=== PATIENT | female | born 1950 | race Caucasian/White ===

== ENCOUNTER 2017-04-29 10:42 | Day surgery (SDC) | payer MEDICARE, OTHER ==
[2017-04-29] VITALS (9 sets, daily range): BP systolic 155–164; BP diastolic 52–86
[~2017-04-29] VITALS: Ht 162.6 cm; Wt 110.3 kg
[2017-04-29] MEDS ORDERED: ASPI81TA52 PO (11:31)
[2017-04-29] MEDS ORDERED: CHOL10002 PO (11:31)
[2017-04-29] MEDS ORDERED: MULT-38 PO (11:31)
[2017-04-29] MEDS ORDERED: EZET10TA14 PO (11:31)
[2017-04-29] MEDS ORDERED: DICL50TA8 PO (11:31)
[2017-04-29] MEDS ORDERED: FURO-150 PO (11:31)
[2017-04-29] MEDS ORDERED: DULO-31 PO (11:31)
[2017-04-29] MEDS ORDERED: ATOR80TA PO (11:31)
[2017-04-29] MEDS ORDERED: LISI40TA4 PO (11:31)
[2017-04-29] MEDS ORDERED: trajenta PO (11:31)
[2017-04-29] MEDS ORDERED: METF500T PO (11:31)
[2017-04-29] MEDS ORDERED: CARV-50 PO (11:31)
[2017-04-29] MEDS ORDERED: ALBU6.7H INH (11:31)
[2017-04-29] MEDS ORDERED: INSU300I SQ (11:31)
[2017-04-29] MEDS ORDERED: SPIR25TA3 PO (11:31)
[2017-04-29] MEDS ORDERED: diphenhydrAMINE 25mg capsule PO PRN (11:35)
[2017-04-29 11:38] LABS: BASOPHILS % (AUTO) 0.4 % (0-1); EOSINOPHILS # (AUTO) 0.5 X10'3 (0-0.9); HEMATOCRIT 36.6 % (35.0-45.0); HEMOGLOBIN 12.3 g/dl (12.0-16.0); LYMPHOCYTES # (AUTO) 2.8 X10'3 (1.1-4.8); LYMPHOCYTES % (AUTO) 26.7 % (21-51); MEAN CORPUSCULAR HEMOGLOBIN 30.5 PG (27.0-31.0); MEAN CORPUSCULAR HGB CONC 33.5 % (33.0-36.5); MEAN CORPUSCULAR VOLUME 91.3 FL (78-98); MEAN PLATELET VOLUME 7.9 FL (7.4-10.4); MONOCYTES # (AUTO) 0.7 X10'3 (0-0.9); MONOCYTES % (AUTO) 6.8 % (2-12); NEUTROPHILS # (AUTO) 6.5 X10'3 (1.8-7.7); NEUTROPHILS % (AUTO) 61.1 % (42-75); PLATELET COUNT 258 X10'3 (140-440); RED BLOOD COUNT 4.01 X10'6 (4.20-5.60); RED CELL DISTRIBUTION WIDTH 13.9 % (11.5-14.5); WHITE BLOOD COUNT 10.6 X10'3 (4.5-11.0)
[2017-04-29] MEDS ORDERED: sodium bicarbonate (8.4%) inj. 150 MEQ in dextrose 5%-water 1,000 ML IV ONE ×2 (11:40→11:45)
[2017-04-29] MEDS ORDERED: LIDOcaine 1%/PF (10mg/ml) 5ml vial ONE (11:41)
[2017-04-29] MEDS ORDERED: iohexol 350 MG/ML 50ML vial IV ONE (11:41)
[2017-04-29] MEDS ORDERED: iohexol 350MG/ML 100ml bottle IV ONE (11:41)
[2017-04-29 11:46] LABS: ALBUMIN 3.3 G/DL (3.4-5.0); ANION GAP 7 (8-16); BLOOD UREA NITROGEN 30 MG/DL (7-18); BUN/CREATININE RATIO 23.1 (6.6-38.0); CALCIUM 9.1 MG/DL (8.5-10.1); CHLORIDE 109 MMOL/L (99-107); GLUCOSE 151 MG/DL (70-104); MAGNESIUM 2.2 MG/DL (1.5-2.4); POTASSIUM 4.5 MMOL/L (3.5-5.1); SODIUM 145 MMOL/L (135-145); TOTAL CARBON DIOXIDE 29.4 MMOL/L (24-32); eGFR 41 ML/MIN
[2017-04-29 11:47] LABS: PROTHROMBIN TIME 10.2 SECONDS (9.0-12.0)
[2017-04-29] MEDS ORDERED: diphenhydrAMINE 50 mg/ml inj ONE (12:03)
[2017-04-29] MEDS ORDERED: fentaNYL/PF 50MCG/1 ML 2ML syringe ONE (12:04)
[2017-04-29] MEDS ORDERED: midazolam 2 mg/2 ml injection ONE (12:04)
[2017-04-29] MEDS ORDERED: hydrALAZINE 20mg/ml inj. IV ONE (12:22)
== END 2017-04-29 16:35 | disposition home or self-care (01) ==
LOC: SSTAY O 10:42
PROVIDERS: ATTEND Internal Medicine Cardiovascular Disease
DX: I25.10 Atherosclerotic heart disease of native coronary artery without angina pectoris (principal); I44.7 Left bundle-branch block, unspecified; E11.9 Type 2 diabetes mellitus without complications; I10 Essential (primary) hypertension; E78.5 Hyperlipidemia, unspecified; E66.9 Obesity, unspecified; M19.90 Unspecified osteoarthritis, unspecified site; F17.210 Nicotine dependence, cigarettes, uncomplicated; Z98.890 Other specified postprocedural states; Z79.82 Long term (current) use of aspirin; Z79.1 Long term (current) use of non-steroidal anti-inflammatories (NSAID); Z79.4 Long term (current) use of insulin; Z79.84 Long term (current) use of oral hypoglycemic drugs; Z90.710 Acquired absence of both cervix and uterus; Z90.722 Acquired absence of ovaries, bilateral; Z85.828 Personal history of other malignant neoplasm of skin; Z68.41 Body mass index [BMI] 40.0-44.9, adult
CPT/HCPCS: 36415; 80048; 82948; 83735; 85025; 85610; 93005; 93458; 99152; 99153; A6257; C1760; C1769; C1894; J0360; J1200; J1644; J2001; J2250; J3010; J7030; Q9967; A4620; J7070

== ENCOUNTER 2021-06-05 14:34 | Inpatient (IN) | payer MEDICARE ==
[~2021-06-05] VITALS: Ht 162.6 cm; Wt 111.8 kg
[~2021-06-05 14:34] MED LIST: ALBU6.7H9 INH; AMA1T PO; ASPI81TA52 PO; ATOR80TA PO; CARV-50 PO; CHOL10002 PO; DAPA10TA PO; DICL50TA8 PO; DULO-31 PO; EZET10TA6 PO; FLUT1BLS4 INH; FURO-150 PO; FURO40TA4 PO; INSU200I4 SQ; INSU300I SQ; LISI40TA13 PO; METF500T PO; METO-411 PO; MULT-38 PO; ROSU40TA22 PO; SPIR25TA5 PO; VARE1TAB24 PO; trajenta PO
[2021-06-05 15:02] LABS: BASOPHILS # (AUTO) 0.1 X10'3 (0-0.2); BASOPHILS % (AUTO) 0.7 % (0-1); EOSINOPHILS # (AUTO) 0.6 X10'3 (0-0.9); EOSINOPHILS % (AUTO) 4.4 % (0-6); HEMATOCRIT 34.4 % (35.0-45.0); HEMOGLOBIN 11.1 g/dl (12.0-16.0); LYMPHOCYTES % (AUTO) 23.6 % (21-51); MEAN CORPUSCULAR HEMOGLOBIN 28.4 PG (27.0-31.0); MEAN CORPUSCULAR HGB CONC 32.2 g/dL (33.0-36.5); MEAN CORPUSCULAR VOLUME 88.1 FL (78-98); MEAN PLATELET VOLUME 8.3 FL (7.4-10.4); MONOCYTES # (AUTO) 0.8 X10'3 (0-0.9); MONOCYTES % (AUTO) 6.3 % (2-12); NEUTROPHILS # (AUTO) 8.3 X10'3 (1.8-7.7); PLATELET COUNT 322 X10'3 (140-440); RED BLOOD COUNT 3.91 X10'6 (4.20-5.60); RED CELL DISTRIBUTION WIDTH 14.8 % (11.5-14.5); WHITE BLOOD COUNT 12.8 X10'3 (4.5-11.0)
[2021-06-05 15:06] LABS: APTT 25 SECONDS (22-32)
[2021-06-05 15:10] LABS: ALANINE AMINOTRANSFERASE 21 U/L (12-78); ALBUMIN 3.2 G/DL (3.4-5.0); ALBUMIN/GLOBULIN RATIO 0.9 (1.1-1.5); ALKALINE PHOSPHATASE 171 IU/L (46-116); ANION GAP 11 (8-16); ASPARTATE AMINO TRANSFERASE 11 U/L (10-37); BILIRUBIN,TOTAL 0.2 MG/DL (0.1-1.0); BLOOD UREA NITROGEN 43 MG/DL (7-18); BUN/CREATININE RATIO 23.5 (6.6-38.0); CALCIUM 8.8 MG/DL (8.5-10.1); CHLORIDE 107 MMOL/L (99-107); CREATININE 1.83 MG/DL (0.40-0.90); GLUCOSE 356 MG/DL (70-104); POTASSIUM 4.7 MMOL/L (3.5-5.1); SODIUM 143 MMOL/L (135-145); TOTAL CARBON DIOXIDE 24.8 MMOL/L (24-32); TOTAL PROTEIN 6.8 G/DL (6.4-8.2); eGFR 27 ML/MIN
[2021-06-05] MEDS ORDERED: DULO30CA52 PO (16:23)
[2021-06-05] MEDS ORDERED: VARE1TAB24 PO (16:23)
[2021-06-05] MEDS ORDERED: DULO60CA65 PO (16:25)
--- NOTE | 2021-06-05 16:30 | NUR ---
Pt had rhythm change. EKG obtained.
[2021-06-05] MEDS ORDERED: heparin 25,000 UNIT/250ml bag 250 ML IV SCH (16:40)
[2021-06-05] MEDS ORDERED: heparin 10,000 units/1 ML INJ IV ONE ×2 (16:40→16:55)
[2021-06-05 18:13] LABS: HEMOGLOBIN A1C 9.1 % (4.5-6.2)
[2021-06-05] MEDS ORDERED: morphine 2 MG/ML inj. syringe IV PRN ×2 (19:20)
[2021-06-05] MEDS ORDERED: MESSAGE TO PHARMACY PO ONE (19:20)
[2021-06-05] MEDS ORDERED: potassium CL 10mEq/100ml bag 100 ML IV PRN (19:20)
[2021-06-05] MEDS ORDERED: DEXTROSE 15 GM of carb/4 tabs (each vial/BOTTLE has 4 tablets) PO PRN ×2 (19:20)
[2021-06-05] MEDS ORDERED: mag hydrox/Alum hydrox/simeth 30ml oral suspension PO PRN (19:20)
[2021-06-05] MEDS ORDERED: acetaminophen 325mg tablet PO PRN ×2 (19:20)
[2021-06-05] MEDS ORDERED: potassium Cl 20 mEq SR tablet PO PRN ×2 (19:20)
[2021-06-05] MEDS ORDERED: magnesium Cl slow-release 64mg tablet PO PRN (19:20)
[2021-06-05] MEDS ORDERED: acetaminophen 650mg rectal suppository RC PRN (19:20)
[2021-06-05] MEDS ORDERED: magnesium hydroxide 30ml (MOM) UD suspension PO PRN (19:20)
[2021-06-05] MEDS ORDERED: normal saline 1000ml 1,000 ML IV SCH (19:20)
[2021-06-05] MEDS ORDERED: magnesium 4gm in 100ml NS 100 ML IV PRN (19:20)
[2021-06-05] MEDS ORDERED: dextrose 50%-water 50ml dispensing syringe IV PRN ×2 (19:20)
[2021-06-05] MEDS ORDERED: bisacodyl 10mg suppository rectal RC PRN (19:20)
[2021-06-05] MEDS ORDERED: glucagon, human recombinant 1mg kit SUBCUT PRN (19:20)
[2021-06-05] MEDS ORDERED: HYDROcodone/acetaminophen 5mg/325mg tablet PO PRN (19:20)
[2021-06-05] MEDS ORDERED: diphenhydrAMINE 25mg capsule PO PRN (19:20)
[2021-06-05] MEDS ORDERED: HYDROcodone/acetaminophen 10/325mg tab PO PRN (19:20)
[2021-06-05] MEDS ORDERED: magnesium 2GM in 50ml NS 50 ML IV PRN (19:20)
[2021-06-05] MEDS ORDERED: ondansetron/PF 4mg/2ml inj IV PRN (19:20)
[2021-06-05] MEDS: K and/or MAG REPLACEMENT MC SCH (20:00)
[2021-06-05] MEDS: docusate sod 100mg capsule PO SCH (20:00)
[2021-06-05] MEDS ORDERED: varenicline tartrate 1mg tablet PO SCH ×2 (20:00→21:07)
[2021-06-05] MEDS ORDERED: budesonide 0.5mg/2ml UD nebule IH SCH (20:00)
[2021-06-05] MEDS: ipratropium/albuterol 3ml nebule IH SCH (20:35)
[2021-06-05] MEDS ORDERED: metoprolol tartrate 1mg/ml inj IV ONE (20:35)
[2021-06-05] MEDS ORDERED: metoprolol tartrate 50mg tablet PO ONE (20:35)
[2021-06-05] MEDS: budesonide 0.5mg/2ml UD nebule IH SCH (20:36)
[2021-06-05] MEDS ORDERED: insulin glargine (Lantus) pen - multi-dose SQ SCH (21:00)
[2021-06-05 22:00] VITALS: BP 150/64
[2021-06-06 02:00] VITALS: BP 172/61
[2021-06-06] MEDS: ipratropium/albuterol 3ml nebule IH SCH ×2 (02:27→09:09)
[2021-06-06] MEDS: heparin 10,000 units/1 ML INJ IV PRN ×2 (02:28→10:39)
[2021-06-06 06:00] VITALS: BP 134/64
[2021-06-06 07:14] LABS: BASOPHILS # (AUTO) 0.1 X10'3 (0-0.2); BASOPHILS % (AUTO) 0.7 % (0-1); EOSINOPHILS # (AUTO) 0.5 X10'3 (0-0.9); EOSINOPHILS % (AUTO) 4.5 % (0-6); HEMATOCRIT 30.5 % (35.0-45.0); LYMPHOCYTES # (AUTO) 3.2 X10'3 (1.1-4.8); LYMPHOCYTES % (AUTO) 30.2 % (21-51); MEAN CORPUSCULAR HGB CONC 32.7 g/dL (33.0-36.5); MEAN CORPUSCULAR VOLUME 88.7 FL (78-98); MEAN PLATELET VOLUME 8.5 FL (7.4-10.4); MONOCYTES # (AUTO) 0.6 X10'3 (0-0.9); MONOCYTES % (AUTO) 6.1 % (2-12); NEUTROPHILS # (AUTO) 6.1 X10'3 (1.8-7.7); NEUTROPHILS % (AUTO) 58.5 % (42-75); PLATELET COUNT 275 X10'3 (140-440); RED BLOOD COUNT 3.44 X10'6 (4.20-5.60); RED CELL DISTRIBUTION WIDTH 14.5 % (11.5-14.5); WHITE BLOOD COUNT 10.5 X10'3 (4.5-11.0)
[2021-06-06 07:21] LABS: ALANINE AMINOTRANSFERASE 16 U/L (12-78); ALBUMIN 2.8 G/DL (3.4-5.0); ALBUMIN/GLOBULIN RATIO 0.9 (1.1-1.5); ALKALINE PHOSPHATASE 102 IU/L (46-116); ANION GAP 7 (8-16); ASPARTATE AMINO TRANSFERASE 13 U/L (10-37); BILIRUBIN,TOTAL 0.3 MG/DL (0.1-1.0); BLOOD UREA NITROGEN 40 MG/DL (7-18); BUN/CREATININE RATIO 26.8 (6.6-38.0); CALCIUM 8.7 MG/DL (8.5-10.1); CHLORIDE 112 MMOL/L (99-107); CREATININE 1.49 MG/DL (0.40-0.90); GLUCOSE 165 MG/DL (70-104); POTASSIUM 4.7 MMOL/L (3.5-5.1); SODIUM 144 MMOL/L (135-145); TOTAL CARBON DIOXIDE 25.4 MMOL/L (24-32); eGFR 35 ML/MIN
[2021-06-06 07:26] LABS: CHOL/HDL RATIO 4.1 (0.00-4.99); CHOLESTEROL 115 MG/DL (0-200); HDL CHOLESTEROL 28 MG/DL (35-60); LDL CHOLESTEROL 64 MG/DL (50-100); MAGNESIUM 2.5 MG/DL (1.5-2.4); TRIGLYCERIDES 121 MG/DL (20-135)
[2021-06-06] MEDS ORDERED: ezetimibe 10mg tablet PO SCH (08:00)
[2021-06-06] MEDS: K and/or MAG REPLACEMENT MC SCH (08:00)
[2021-06-06] MEDS ORDERED: cholecalciferol (vitamin D3) 1,000 unit (25mcg) tablet PO SCH (08:00)
[2021-06-06] MEDS ORDERED: atorvastatin 20mg tablet PO SCH (08:00)
[2021-06-06] MEDS ORDERED: metoprolol succinate 25mg (24-HOUR) SR. Tablet PO SCH (08:00)
[2021-06-06] MEDS ORDERED: furosemide 40mg tablet PO SCH (08:00)
[2021-06-06] MEDS ORDERED: aspirin 81mg, enteric-coated 1 TAB TABLET.DR PO SCH (08:00)
[2021-06-06] MEDS ORDERED: lisinopril 20mg tablet PO SCH (08:00)
[2021-06-06] MEDS ORDERED: spironolactone 25 MG tablet PO SCH (08:00)
[2021-06-06] MEDS ORDERED: duloxetine 30mg CAPSULE.DR PO SCH ×2 (08:00)
[2021-06-06] MEDS ORDERED: multivitamins, therapeutics tablet PO SCH (08:00)
[2021-06-06] MEDS: budesonide 0.5mg/2ml UD nebule IH SCH (09:09)
[2021-06-06] MEDS: docusate sod 100mg capsule PO SCH (10:27)
[2021-06-06 10:34] VITALS: BP_SYST 137
[2021-06-06] MEDS: insulin Lispro (HumaLOG) vial - multi-dose SQ SCH ×2 (10:42→13:27)
[2021-06-06] MEDS ORDERED: CLOP75TA15 PO (11:11)
[2021-06-06] MEDS ORDERED: clopidogrel 75mg tablet PO SCH (11:40)
--- NOTE | 2021-06-06 13:36 | NUR ---
DM consult: Pt with T2DM with A1c 9.1%. Pt discharged prior to RD being available for bedside visit. Written DM education with RD contact information mailed to patient's address found in EMR. Will remain available. Addendum: 06/06/21 at [address] Amended: Links added.
--- NOTE | 2021-06-06 13:53 | NUR ---
Patient is being discharged. Gave her all discharge instructions and answered all her questions. Both IVs were removed and intact. No redness or irritation noted. Telemetry removed. Patient has all her belongings. Patient drove herself. Wheeled her down to her car via wheelchair and helped her into her car.
== END 2021-06-06 13:33 | disposition home or self-care (01) | DRG 309 ==
LOC: ER 14:35 → ED HOLD 19:24 → PCU 3S 21:50
PROVIDERS: ADMIT Family Medicine; ATTEND Family Medicine
DX: I48.91 Unspecified atrial fibrillation (principal); I13.0 Hypertensive heart and chronic kidney disease with heart failure and stage 1 through stage 4 chronic kidney disease, or unspecified chronic kidney disease; I65.22 Occlusion and stenosis of left carotid artery; I42.9 Cardiomyopathy, unspecified; Z20.822 Contact with and (suspected) exposure to COVID-19; D72.829 Elevated white blood cell count, unspecified; E11.22 Type 2 diabetes mellitus with diabetic chronic kidney disease; E66.01 Morbid (severe) obesity due to excess calories; E78.5 Hyperlipidemia, unspecified; F32.A Depression, unspecified; F41.9 Anxiety disorder, unspecified; J44.9 Chronic obstructive pulmonary disease, unspecified; I25.10 Atherosclerotic heart disease of native coronary artery without angina pectoris; I50.9 Heart failure, unspecified; N18.9 Chronic kidney disease, unspecified; Z79.02 Long term (current) use of antithrombotics/antiplatelets; Z79.82 Long term (current) use of aspirin; I25.2 Old myocardial infarction; Z85.820 Personal history of malignant melanoma of skin; Z87.891 Personal history of nicotine dependence; Z90.710 Acquired absence of both cervix and uterus; Z95.5 Presence of coronary angioplasty implant and graft; Z68.24 Body mass index [BMI] 24.0-24.9, adult; J45.909 Unspecified asthma, uncomplicated
CPT/HCPCS: 36415; 70498; 71045; 80053; 80061; 82948; 83036; 83735; 84484; 85025; 85610; 85730; 87081; 87635; 93005; 94640; 94760; 96365; 96375; 99285; C9803; G0378; J1644; J1815; J3490; J7030; J7070

== ENCOUNTER 2021-06-22 09:01 | Inpatient (IN) | payer MEDICARE ==
[2021-06-18 14:01] LABS: BASOPHILS # (AUTO) 0.1 X10'3 (0-0.2); BASOPHILS % (AUTO) 0.5 % (0-1); EOSINOPHILS # (AUTO) 0.6 X10'3 (0-0.9); EOSINOPHILS % (AUTO) 4.6 % (0-6); LYMPHOCYTES # (AUTO) 2.5 X10'3 (1.1-4.8); LYMPHOCYTES % (AUTO) 20.2 % (21-51); MEAN CORPUSCULAR HEMOGLOBIN 28.6 PG (27.0-31.0); MEAN CORPUSCULAR HGB CONC 32.5 g/dL (33.0-36.5); MEAN CORPUSCULAR VOLUME 87.9 FL (78-98); MEAN PLATELET VOLUME 8.3 FL (7.4-10.4); MONOCYTES # (AUTO) 0.8 X10'3 (0-0.9); MONOCYTES % (AUTO) 6.3 % (2-12); NEUTROPHILS # (AUTO) 8.5 X10'3 (1.8-7.7); NEUTROPHILS % (AUTO) 68.4 % (42-75); PRE OP HEMATOCRIT 36.8 % (35.0-45.0); PRE OP PLATELET COUNT 367 X10'3 (140-440); RED BLOOD COUNT 4.19 X10'6 (4.20-5.60); RED CELL DISTRIBUTION WIDTH 14.5 % (11.5-14.5)
[2021-06-18 14:13] LABS: HEMOGLOBIN A1C 8.8 % (4.5-6.2)
[2021-06-18 14:14] LABS: PRE OP PROTIME 10.3 SECONDS (9.0-12.0)
[2021-06-18 14:16] LABS: ALBUMIN 3.6 G/DL (3.4-5.0); ALBUMIN/GLOBULIN RATIO 0.9 (1.1-1.5); ALKALINE PHOSPHATASE 122 IU/L (46-116); BLOOD UREA NITROGEN 62 MG/DL (7-18); BUN/CREATININE RATIO 28.6 (6.6-38.0); CALCIUM 8.8 MG/DL (8.5-10.1); CHLORIDE 106 MMOL/L (99-107); CREATININE 2.17 MG/DL (0.40-0.90); PRE OP ALT 23 U/L (30-65); PRE OP ANION GAP 10 (8-16); PRE OP AST 21 U/L (10-37); PRE OP BILIRUB, TOTAL 0.3 MG/DL (0.0-1.0); PRE OP POTASSIUM 4.7 MMOL/L (3.4-5.1); PRE OP SODIUM 142 MMOL/L (135-145); TOTAL CARBON DIOXIDE 26.4 MMOL/L (24-32); TOTAL PROTEIN 7.5 G/DL (6.4-8.2); eGFR 22 ML/MIN
[2021-06-18 14:21] LABS: PRE OP GLUCOSE 60 MG/DL (70-104)
[2021-06-22] VITALS (22 sets, daily range): BP systolic 112–176; BP diastolic 49–83
[~2021-06-22] VITALS: Ht 160 cm; Wt 113.1 kg
[~2021-06-22 09:01] MED LIST changes: -ATOR80TA PO; -CARV-50 PO; +CLOP75TA15 PO; -DICL50TA8 PO; -DULO-31 PO; +DULO30CA52 PO; +DULO60CA65 PO; -FURO-150 PO; -INSU300I SQ; -METF500T PO; +cefazolin/dext.iso 2gm/50ml IV ONE; +famotidine 20mg tablet PO ONE; +mupirocin 2% nasal ointment 1gm UD NS ONE; +ringers solution, lacted 1,000 ML IV SCH; -trajenta PO
[2021-06-22] MEDS ORDERED: nitroPRUSSIDE sod inj. 50 MG in dextrose 5%-water 248 ML IV SCH ×2 (10:10→13:50)
[2021-06-22] MEDS ORDERED: phenylephrine 50 MG in NS 250ml IVPB IV SCH (10:10)
[2021-06-22] MEDS ORDERED: heparin 10,000 units/1 ML INJ ONE (10:22)
[2021-06-22] MEDS ORDERED: ceFAZolin 1000mg inj ONE (10:22)
[2021-06-22] MEDS: phenylephrine 50 MG in NS 250ml IVPB IV SCH (10:34)
[2021-06-22] MEDS ORDERED: rocuronium 10mg/ml inj IV ONE ×2 (12:59→13:24)
[2021-06-22] MEDS ORDERED: etomidate 2mg/ml inj. ONE ×2 (12:59→13:24)
[2021-06-22] MEDS ORDERED: ondansetron/PF 4mg/2ml inj ONE (13:26)
[2021-06-22] MEDS ORDERED: dexamethasone sod phosphate 4mg/ml inj. ONE (13:26)
[2021-06-22] MEDS ORDERED: FENTANYL CITRATE/PF 50 MCG/1 ML VIAL ONE (13:26)
[2021-06-22] MEDS ORDERED: glycopyrrolate 0.2mg/ml inj ONE (13:28)
[2021-06-22] MEDS ORDERED: sugammadex 200mg/2ml injection IV ONE (13:41)
[2021-06-22] MEDS ORDERED: ringers solution, lacted 1,000 ML IV SCH (13:50)
[2021-06-22] MEDS ORDERED: morphine 4 MG/ML inj SYRINge IV PRN (13:50)
[2021-06-22] MEDS ORDERED: fentaNYL/PF 50MCG/1 ML 2ML syringe IV PRN ×2 (13:50)
[2021-06-22] MEDS ORDERED: hydrALAZINE 20mg/ml inj. IV PRN (13:50)
[2021-06-22] MEDS ORDERED: enalaprilat dihydrate 2.5mg/2ml vial IV PRN (13:50)
[2021-06-22] MEDS ORDERED: ondansetron/PF 4mg/2ml inj IV PRN ×2 (13:50→14:45)
[2021-06-22] MEDS ORDERED: PHENYLephrine 10mg/ml inj. 100 MG in normal saline 250ml IV soln 240 ML IV SCH (13:50)
[2021-06-22] MEDS ORDERED: morphine 2 MG/ML inj. syringe IV PRN (13:50)
[2021-06-22] MEDS ORDERED: albumin (Human) 5% 250ml 250 ML IV ONE (14:02)
[2021-06-22] MEDS ORDERED: hydrALAZINE 20mg/ml inj. IV ONE (14:27)
[2021-06-22] MEDS ORDERED: HYDROcodone/acetaminophen 5mg/325mg tablet PO PRN (14:45)
[2021-06-22] MEDS ORDERED: metoclopramide 5 mg/ml inj IV PRN (14:45)
[2021-06-22] MEDS ORDERED: albuterol 2.5 MG/3 ML nebule NEB PRN (14:45)
[2021-06-22] MEDS ORDERED: HYDROcodone/acetaminophen 10/325mg tab PO PRN (14:45)
--- NOTE | 2021-06-22 14:57 | NUR ---
Received from OR via HOSPITAL BED , accompanied by Anesthesiologist DR FERRARI and report given by Anesthesiolgist. PT PRESENTS WITH ART LINE RITH WRIST, 18G RIGHT AC, ANDREA DRAIN LEFT NECK. VSS. PT A&0 X 4, NEURO CHECK. Addendum: 06/22/21 at 1533 by Liza Knott RN, RN Amended: Links added.
[2021-06-22] MEDS: ceFAZolin 1GM/D5W- ADD-VANTAGE 50 ML IV SCH ×2 (16:00→23:25)
--- NOTE | 2021-06-22 16:15 | NUR ---
STEFAN WILSON CALLED AND I EXPLAIN DRESSING HAS SCANT BLOOD, STEFAN WILSON CHANGED DRESSING WITH STRILE 4X4 AND PAPER TAPE. BLEEDING STOPPED AT THIS TIME. Addendum: 06/22/21 at 1709 by Liza Knott RN, RN Amended: Links added.
--- NOTE | 2021-06-22 16:57 | NUR ---
Report called to receiving nurse REBEKAH ELLIS. Transferred via HOSPITAL BED ON MONITOR TO ROOM 2039 WHERE REBEKAH RN WAS AT BEDSIDE FOR REPORT. PT'S ANDREA DRAIN IS BLEEDING FROM TUBE PLACEMENT SITE, 4X4 PLACED WITH COMPRESSIN TAPE APPLIED, STEFAN TAYLOR CALLED AND WILL GO TO PT ROOM WHEN HE OUT OF SURGERY, PT'S FRONT WHEEL WALKER AND 2 PT BELONGING BAGS TAKEN TO ROOM 2039. Special Issues communicated to receiving nurse. Addendum: 06/22/21 at 1714 by Liza Knott RN RN Amended: Links added.
--- NOTE | 2021-06-22 17:30 | NUR ---
pt arrived from PACU and left carotid arias drain was bleeding through dressing and drain was not producing any output. Milked line with no success. Altered Dr. Pierre and he stated he was ok with it as long as there was no hematoma present
[2021-06-22] MEDS: varenicline tartrate 1mg tablet PO SCH (19:55)
[2021-06-22] MEDS ORDERED: ALBUTEROL INHALER 1 PUFF/90 MCG INHALER IH SCH (20:00)
[2021-06-23] VITALS (12 sets, daily range): BP systolic 119–178; BP diastolic 51–73
[2021-06-23] MEDS: phenylephrine 50 MG in NS 250ml IVPB IV SCH (01:31)
[2021-06-23 02:37] LABS: BASOPHILS # (AUTO) 0.1 X10'3 (0-0.2); BASOPHILS % (AUTO) 0.4 % (0-1); EOSINOPHILS % (AUTO) 0 % (0-6); HEMATOCRIT 32.8 % (35.0-45.0); HEMOGLOBIN 10.6 g/dl (12.0-16.0); LYMPHOCYTES % (AUTO) 6.4 % (21-51); MEAN CORPUSCULAR HEMOGLOBIN 28.7 PG (27.0-31.0); MEAN CORPUSCULAR HGB CONC 32.4 g/dL (33.0-36.5); MEAN CORPUSCULAR VOLUME 88.7 FL (78-98); MEAN PLATELET VOLUME 8.1 FL (7.4-10.4); MONOCYTES # (AUTO) 0.3 X10'3 (0-0.9); MONOCYTES % (AUTO) 1.9 % (2-12); NEUTROPHILS # (AUTO) 14.9 X10'3 (1.8-7.7); NEUTROPHILS % (AUTO) 91.3 % (42-75); PLATELET COUNT 338 X10'3 (140-440); RED CELL DISTRIBUTION WIDTH 14.5 % (11.5-14.5); WHITE BLOOD COUNT 16.3 X10'3 (4.5-11.0)
[2021-06-23 02:55] LABS: ANION GAP 10 (8-16); BLOOD UREA NITROGEN 54 MG/DL (7-18); BUN/CREATININE RATIO 28.4 (6.6-38.0); CHLORIDE 105 MMOL/L (99-107); GLUCOSE 153 MG/DL (70-104); POTASSIUM 5.3 MMOL/L (3.5-5.1); SODIUM 139 MMOL/L (135-145); TOTAL CARBON DIOXIDE 23.6 MMOL/L (24-32); eGFR 26 ML/MIN
[2021-06-23 03:02] LABS: CALCIUM 8.5 MG/DL (8.5-10.1)
--- NOTE | 2021-06-23 03:26 | NUR ---
This is a 71 yo female, admitted 06/22/2021, elective surgery for Left Carotid endarterectomy, Full code, No allergies, No restraints, no isolation. CTA 06/05/2021 shows severe stenosis left Proximal Carotid (70-90%). Pt is s/p left carotid endarterectomy, arias drain present, Pt is AAO times 4, moves all extremities, follows all commands, Neuro check Q 4 hours. HR 92, SR/BBB/1degree ACB, BP 148-180/60-77, weak pulses, good cap refill. IVF infusing via RFA #18. LR @20ml/hr. Rt A-Line with good blood return, good wave form, good square wave. Zeroed at beginning of shift. Pt on Eliquis. RR 16-20 PO 100% on oxygen 2 L NC. Breath sounds, clear, equal, symmetrical, non labored. Hypoactive bowel sounds, soft non tender, non distended, large obese abdomen. Glucose checks Q 6 hours, 140's. Voiding freely via Purewick, clear yellow urine. >2000, Cr 1.90 BUN 54. Pt on abx Cefepime. Skin in tact, ARIAS drain to left neck surgical site. Pt remains safe, continue to monitor. AM WBC's 16.3, K+5.3
[2021-06-23] MEDS ORDERED: HYDR-3964 PO (07:25)
[2021-06-23] MEDS: ceFAZolin 1GM/D5W- ADD-VANTAGE 50 ML IV SCH (07:35)
[2021-06-23] MEDS ORDERED: aspirin 81mg, enteric-coated 1 TAB TABLET.DR PO SCH (08:00)
[2021-06-23] MEDS ORDERED: DAPAGLIFLOZIN 10MG TABLET PO SCH (08:00)
[2021-06-23] MEDS ORDERED: atorvastatin 20mg tablet PO SCH (08:00)
[2021-06-23] MEDS ORDERED: cholecalciferol (vitamin D3) 1,000 unit (25mcg) tablet PO SCH (08:00)
[2021-06-23] MEDS: varenicline tartrate 1mg tablet PO SCH (08:00)
[2021-06-23] MEDS ORDERED: spironolactone 25 MG tablet PO SCH (08:00)
[2021-06-23] MEDS ORDERED: metoprolol succinate 25mg (24-HOUR) SR. Tablet PO SCH (08:00)
[2021-06-23] MEDS ORDERED: duloxetine 30mg CAPSULE.DR PO SCH (08:00)
[2021-06-23] MEDS ORDERED: ezetimibe 10mg tablet PO SCH (08:00)
[2021-06-23] MEDS ORDERED: non-formulary drug (Fluticasone/Umeclidin/Vilanter (Trelegy Ellipta 100-62.5-25) 1 PUFFS) PO SCH (08:00)
[2021-06-23] MEDS ORDERED: multivitamins, therapeutics tablet PO SCH (08:00)
[2021-06-23] MEDS ORDERED: non-formulary drug (Duloxetine HCl 1 CAP) PO SCH (08:00)
[2021-06-23] MEDS ORDERED: lisinopril 20mg tablet PO SCH (08:00)
[2021-06-23] MEDS ORDERED: clopidogrel 75mg tablet PO SCH (08:00)
--- NOTE | 2021-06-23 09:00 | NUR ---
Pt orders from Dr. Pierre, removed A line. Applied pressure until bleeding stopped. Wrapped with gauze and coban. TM
--- NOTE | 2021-06-23 11:04 | NUR ---
DM Consult: Pt hx T2DM A1C 8.8%. Pt seen by RD for written/verbal DM ed w/ RD contact information provided. Pt reports has received education in past and admits to excess sweets/snacks consumption. RD reviewed carb portion sizing and balanced meals w/ pt. RD encouraged pt to contact dietitian's office if further questions/concerns. Addendum: 06/23/21 at [address] Amended: Links added.
--- NOTE | 2021-06-23 14:22 | NUR ---
per orders dc patient to home. Educated pt on medications and activity. Questions answered, IV removed. Pt left via wheelchair with all belongings
== END 2021-06-23 13:45 | disposition home or self-care (01) | DRG 38 ==
LOC: PAS IN 09:01 → ICU 2S 16:35
PROVIDERS: ADMIT Thoracic Surgery (Cardiothoracic Vascular Surgery); ATTEND Thoracic Surgery (Cardiothoracic Vascular Surgery)
PROC: 03UL0KZ Supplement Left Internal Carotid Artery with Nonautologous Tissue Substitute, Open Approach (ICD-10-PCS; 2021-06-22)
PROC: 03CL0ZZ Extirpation of Matter from Left Internal Carotid Artery, Open Approach (ICD-10-PCS; principal; 2021-06-22 12:55)
DX: I65.22 Occlusion and stenosis of left carotid artery (principal); I42.9 Cardiomyopathy, unspecified; Z68.41 Body mass index [BMI] 40.0-44.9, adult; I13.0 Hypertensive heart and chronic kidney disease with heart failure and stage 1 through stage 4 chronic kidney disease, or unspecified chronic kidney disease; E11.22 Type 2 diabetes mellitus with diabetic chronic kidney disease; I25.10 Atherosclerotic heart disease of native coronary artery without angina pectoris; N18.30 Chronic kidney disease, stage 3 unspecified; I50.9 Heart failure, unspecified; J44.9 Chronic obstructive pulmonary disease, unspecified; E66.9 Obesity, unspecified; E78.5 Hyperlipidemia, unspecified; F32.A Depression, unspecified; Z79.02 Long term (current) use of antithrombotics/antiplatelets
CPT/HCPCS: 36415; 80048; 80053; 82948; 83036; 85025; 85610; 85730; 86885; 86900; 86901; 87081; 87635; 93005; 94010; 97161; 97530; A4215; A4618; A6250; A6258; A6402; A7000; C1768; G0378; J0360; J0690; J1100; J1644; J2405; J3010; J3490; J7120; P9045